=== PATIENT | male | born 1940 | race Caucasian/White ===

== ENCOUNTER 2025-06-25 13:01 | Inpatient (IN) | payer MEDICARE, MEDICAID, SELFPAY ==
--- NOTE | 2025-06-25 13:02 | ED_ITS ---
HPI - Syncope 2 General: Chief Complaint: Syncope Stated Complaint: SYNCOPE Time Seen by Provider: 06/25/25 13:02 History of Present Illness: 84-year-old man with a history of agus ia, BPH, constipation, hypertension, schizoaffective disorder, anemia, hypothyroidism, who presents to the emergency room by ambulance from skilled nursing after having had a couple of syncopal episodes today. He has fairly severe dementia and does not have any complaints but is prone to becoming emotional and crying quite frequently. Apparently this is his normal behavior at the skilled nursing. No focal motor deficits. He is afebrile with fairly normal vitals on presentation. Related Data Home Medications ?Medication ?Instructions ?Recorded ?Confirmed acetaminophen 325 mg tablet 650 mg PO QID PRN mild 10/1506/25/25 pain/fever>100 cetirizine 10 mg tablet (Zyrtec) 10 mg PO DAILY 06/25/25 cyanocobalamin (vitamin B-12) 1,000 mcg IM .Q28D 06/2506/25/25 1,000 mcg/mL injection solution docusate sodium 100 mg capsule 100 mg PO BID 06/25/25 06/25/25 (Colace) guaifenesin 100 mg/5 mL oral 200 mg PO Q6H PRN cough/c ongestion 06/25/25 06/25/25 liquid (Magali-Tussin) levothyroxine 50 mcg tablet 50 mcg PO QAM 06/25/2510/15 memantine 10 mg tablet 10 mg PO BID 06/25/25 naloxone 1 mg/mL injection syringe 1 mg IM Q2M PRN Opi oid Overdose 06/25/25 06/25/25 oxcarbazepine 300 mg tablet 300 mg PO BID 06/25/2510/15 phenol 1.4 % mucosal aerosol spray 2 spray mucous memb lorenzo Q4H PRN 06/25/25 06/25/25 Sore Throat Review of Systems 2 General: Reports: ROS unobtainable due to medical condition Physical Exam 2 Narrative: EXAM NARRATIVE: General: Alert, no acute distress. Skin: Warm, dry. Head: Normocephalic, atraumatic. Neck: Supple, trachea midline. Eye: Extraocular movements are intact. Ears, nose, mouth and throat: Dry oral mucosa Cardiovascular: Regular, Normal peripheral perfusion. Respiratory: Lungs are clear to auscultation, respirations are non-labored, breath sounds are equal, Symmetrical chest wall expansion. Gastrointestinal: Soft, Nontender, Non distended Musculoskeletal: Normal ROM, no deformity. Neurological: Alert and oriented, No focal neurological deficit observed. Psychiatric: Cooperative, appropriate mood & affect. Course 2 Vital Signs: Vital signs: Vital Signs Temperature 98.1 F 06/25/25 13:03 Pulse Rate 60 06/25/25 13:17 Respiratory Rate 62 H 06/25/25 13:55 Blood Pressure 123/72 06/25/25 13:55 Pulse Oximetry 100 06/25/25 13:17 Oxygen Delivery Me thod Room Air 06/25/25 13:17 MDM - Syncope Medical Decision Making Medical decision making Patient's reason for coming to the emergency room: Syncopal episode Social determinants: Advanced dementia, skilled nursing patient I reviewed the patient's medical record. Patient has no previous visits here but I did review his record from the skilled nursing. 84-year-old man with a history of dementia, BPH, constipation, hypertension, schizoaffective disorder, anemia, hypothyroidism I reviewed the patient's current home meds Medications include Trileptal, memantine, docusate, cetirizine, Tylenol, levothyroxine, and he also has a history of a pacemaker. No listed anticoagulation Alternate historians: None Differential diagnosis: including but not limited to and based on the above HPI, review of systems and physical exam: Orders placed to evaluate differential diagnosis based on the above differential, HPI and physical exam EKG: Time 1340. Rate 60. Normal sinus rhythm, No ST-T changes, no ectopy, paced rhythm, this was reviewed and interpreted by myself the emergency room physician at 1345 Chest x-ray: No acute process. No infiltrate. No pneumothorax. This was reviewed and interpreted by myself the emergency room physician. I also reviewed the radiology report. Lab Review: Laboratory results were reviewed and interpreted by myself the emergency room physician. No leukocytosis. Mild anemia. He has anemia listed in his skilled nursing record so I imagine this is not much off his baseline. BUN and creatinine are 22 and 1.3. Chronic kidney disease is not listed with a sodium of 123 and with his exam I think he is hyponatremic secondary to dehydration. I do not see any diuretics or anything else that would cause this in his medications. Assessment of risk: Level of risk: High risk patient. Multiple comorbidities. Very elderly. Dementia. Hospitalization considerations: Patient is being admitted Reexamination: Patient remained stable. No increased work of breathing. No altered mental status. No focal motor deficits. Consultation: I spoke with Dr. Brian who is on-call for the hospital service who agrees to admission Assessment and plan: Syncope Dehydration Hyponatremia ?Normal saline bolus in the emergency room -I discussed the patient with the hospitalist on-call who is admitting the patient. - Discussed findings and plan with patient. Answered any questions. - All laboratory values were reviewed and interpreted personally by myself, the ER physician - All imaging was reviewed and interpreted personally by myself, the ER physician. - Evaluation and treatment of this problem were appropriate in the emergency setting Lab Data 06/25/25 13:06 06/25/25 13:06 Radiology Impressions Chest X-Ray 06/25/25 13:05 IMPRESSION: No acute cardiopulmonary findings. Laboratory Results WBC 3.95 10^3/uL (3.29-11.43) 06/25/25 13:06 RBC 2.92 10^6/uL (3.85-5.65) L 06/25/25 13:06 Hgb 9.90 g/dL (11.27-16.99) L 06/25/25 13:06 Hct 27.3 % (37-53) L 06/25/25 13:06 MCV 93.5 fl (82-101) 06/25/25 13:06 MCH 33.9 pg (27-33) H 06/25/25 13:06 MCHC 36.3 g/dL (30-55) 06/25/25 13:06 RDW 14.7 % (12.1-15.1) 06/25/25 13:06 Plt Count 171 10^3/cmm (157-399) 06/25/25 13:06 MPV 9.7 fL (7.4-10.4) 06/25/25 13:06 Neut % (Auto) 40.2 % 06/25/25 13:06 Lymph % (Auto) 41.3 % 06/25/25 13:06 [place] % (Auto) 8.6 % 06/25/25 13:06 Eos % (Auto) 8.4 % 06/25/25 13:06 Baso % (Auto) 1.0 % 06/25/25 13:06 Neut # (Auto) 1.59 10^3/uL (1.8-7.7) L 06/25/25 13:06 Lymph # (Auto) 1.6 10^3/uL (0.8-4.8) 06/25/25 13:06 [place] # (Auto) 0.3 10^3/uL (0.2-0.9) 06/25/25 13:06 Eos # (Auto) 0.3 10^3/uL (0.0-0.8) 06/25/25 13:06 Baso # (Auto) 0.0 10^3/uL (0.0-0.1) 06/25/25 13:06 Nucleated RBC % (auto) 0 % 06/25/25 13:06 Nucleated RBCs # 0.0 /100WBC 06/25/25 13:06 Sodium 123 mmol/L (136-145) L 06/25/25 13:06 Potassium 4.5 mmol/L (3.5-5.1) 06/25/25 13:06 Chloride 90 mmol/L (98-107) L 06/25/25 13:06 Carbon Dioxide 21 mmol/L (22-29) L 06/25/25 13:06 Anion Gap 16.5 (5-19) 06/25/25 13:06 BUN 22 mg/dL (8-23) 06/25/25 13:06 Creatinine 1.3 mg/dL (0.7-1.2) H 06/25/25 13:06 GFR Calculation Not Reportable 06/25/25 13:06 Glucose 109 mg/dL (65-115) 06/25/25 13:06 Calculated Osmolality 260 mOsm/kg (285-295) L 06/25/25 13:06 Lactic Acid 1.6 mmol/L (0.5-2.2) 06/25/25 13:15 Calcium 9.0 mg/dL (8.5-10.5) 06/25/25 13:06 Total Bilirubin 0.3 mg/dL (0.15-1.2) 06/25/25 13:06 AST 17 U/L (0-40) 06/25/25 13:06 ALT 10 U/L (0-41) 06/25/25 13:06 Alkaline Phosphatase 101 U/L (40-130) 06/25/25 13:06 Troponin T Baseline 15 ng/L (0-15) 06/25/25 13:06 Troponin T 120 Minute 13.32 ng/L (0-15) 06/25/25 14:50 Delta Troponin T -1.68 ABS# (0-10) L 06/25/25 14:50 Total Protein 6.8 g/dL (6.6-8.7) 06/25/25 13:06 Albumin 4.2 g/dL (3.5-5.2) 06/25/25 13:06 Globulin 2.6 g/dL (1.3-4.6) 06/25/25 13:06 Urine Color Yellow (Yellow) 06/25/25 13:35 Urine Appearance Clear (CLEAR) 06/25/25 13:35 Urine pH 5.5 (5-7) 06/25/25 13:35 Ur Specific [place] 1.019 (1.005-1.030) 06/25/25 13:35 Urine Protein Trace (Negative) A 06/25/25 13:35 Urine Glucose (UA) Negative (Normal) 06/25/25 13:35 Urine Ketones Negative (Negative) 06/25/25 13:35 Urine Blood Negative (Negative) 06/25/25 13:35 Urine Nitrate Negative (Negative) 06/25/25 13:35 Urine Bilirubin Negative (Negative) 06/25/25 13:35 Urine Urobilinogen 0.2 mg/dL (Negative) 06/25/25 13:35 Ur Leukocyte Esterase Negative (Negative) 06/25/25 13:35 Urine RBC 0-2 /hpf (0-2) 06/25/25 13:35 Urine WBC 0-5 /hpf (0-5) 06/25/25 13:35 Ur Squamous Epith Cells 0-5 /hpf (0-5) 06/25/25 13:35 Amorphous Sediment Not Reportable 06/25/25 13:35 Urine Bacteria None seen /hpf (NONE) 06/25/25 13:35 Hyaline Casts 2.46 /lpf 06/25/25 13:35 All radiology interpretation(s) finalized by discharge Discharge Plan Discharge Patient Disposition: Admitted As Inpatient Clinical Impression: Acute hyponatremia, Dehydration, Syncope Condition: Stable Coding Level of Care Code ED Computer Forensics Analyst for Cynthia Montes
[2025-06-25 13:03] VITALS: BP 114/84; PULSE 60; RESP 16; TEMP 36.7; O2SAT 99; BMI 23.6
--- NOTE | 2025-06-25 13:05 | XRR_ITS ---
PROCEDURE INFORMATION: Exam: XR Chest Exam date and time: 06/25/2025 1:23 PM Age: 84 years old Clinical indication: Other: Weakness TECHNIQUE: Imaging protocol: Radiologic exam of the chest. Views: 1 view. COMPARISON: No relevant prior studies available. FINDINGS: Tubes, catheters and devices: Left subclavian pacer with right atrial appendage and right ventricular leads. Lungs: Low lung volumes. No focal consolidation. Pleural spaces: Unremarkable. No pleural effusion. No pneumothorax. Heart/Mediastinum: Unremarkable. No cardiomegaly. Vasculature: Atherosclerotic aortic calcifications. Bones/joints: Unremarkable. XR/XR chest 1V portable [id number] IMPRESSION: No acute cardiopulmonary findings.
--- NOTE | 2025-06-25 13:05 | ECG_ITS ---
[facility]: 2025-[facility]25 Pat Name: Jaciel Thrasher Department: Room: Gender: Male Phone Specialist: : 1940 Requested By: Reshma Borges Order Number: [id number] Guillaume MD: Ghada Craaballo M.D. Measurements Intervals [place] Rate: 60 P: -64 W[place]: 215 QRS: -77 QRSD: 158 T: 86 QT: 483 QTc: 485 Interpretive Statements ELECTRONIC ATRIAL PACEMAKER ELECTRONIC VENTRICULAR PACEMAKER ABNORMAL RHYTHM ECG No previous ECG available for comparison Electronically Signed On 06-25-2025 23:39:01 READING TEACHER by Ghada Caraballo M.D. [email or web address] [id number]
[2025-06-25 13:14] LABS: Hematocrit 27.3 % (37-53); Hemoglobin 9.90 g/dL (11.27-16.99); Mean Corpuscular HGB Conc 36.3 g/dL (30-55); Mean Corpuscular Hemoglobin 33.9 pg (27-33); Mean Corpuscular Volume 93.5 fl (82-101); Nucleated Red Blood Cells % 0 %; Platelet Count 171 10^3/cmm (157-399); Red Blood Count 2.92 10^6/uL (3.85-5.65); White Blood Count 3.95 10^3/uL (3.29-11.43)
[2025-06-25 13:17] VITALS: BP 114/84; PULSE 60; O2SAT 100
[2025-06-25 13:32] LABS: Troponin(5th) Baseline 15 ng/L (0-15)
[2025-06-25 13:34] LABS: Alanine Aminotransferase 10 U/L (0-41); Albumin Level 4.2 g/dL (3.5-5.2); Alkaline Phosphatase 101 U/L (40-130); Anion Gap 16.5 (5-19); Aspartate Amino Transferase 17 U/L (0-40); Blood Urea Nitrogen 22 mg/dL (8-23); Calcium 9.0 mg/dL (8.5-10.5); Carbon Dioxide 21 mmol/L (22-29); Chloride 90 mmol/L (98-107); Globulin 2.6 g/dL (1.3-4.6); Glucose 109 mg/dL (65-115); Osmolality Calculated 260 mOsm/kg (285-295); Potassium 4.5 mmol/L (3.5-5.1); Sodium 123 mmol/L (136-145); Total Protein 6.8 g/dL (6.6-8.7)
--- OUTSIDE RECORDS SUMMARY | 2025-06-25 13:35 | XMS_ITS | Clinical Summary ---
Author Organization [facility] un[facility] Address [address] [place] [address] Phone Care Team Providers Care Record Maker Name Role Phone Unavailable Primary Care Provider Unavailabl e Allergies Active Allergy Reactions Criticality Noted Date Comments Tamsulosin Unknown 05/22/2024 Medications acetaminophen (TYLENOL) 325 mg tablet Take 325 mg by mouth every 4 hours as needed for Pain. Active docusate sodium (COLACE) 100 mg capsule Take 100 mg by mouth 2 times daily. Active levothyroxine 50 mcg tablet Take 50 mcg by mouth daily in the morning. Active OXcarbazepine (TRILEPTAL) 300 mg tablet Take 300 mg by mouth 2 times daily. Active memantine (NAMENDA) 10 mg Tablet Take 10 mg by mouth 2 times daily. 05/13/2024 Active HYDROcodone-swapnil taminophen (NORCO) 5-325 mg tabletIndicatio ns:Phimosis of penis Take 1 Tablet by mouth every 8 hours as needed for Pain or Other (See Comment) (circumcisio n). Max Daily Amount: 3 Tablets 12 Tablet 06/04/2024 Active Active Problems Problem Noted Date Diagnosed Date Phimosis of penis 05/22/2024 Encounters Date Type Department Care Team Description 06/17/2025 External Device Data [facility] ABSTRACTION Provider, Abstract 06/17/2025 External Device Data [facility] ABSTRACTION Provider, Abstract 06/17/2025 External Device Data [facility] ABSTRACTION Provider, Abstract 04/29/2025 External Device Data [facility] ABSTRACTION Provider, Abstract 04/29/2025 External Device Data [facility] ABSTRACTION Provider, Abstract from Last 3 Months Immunizations Immunization Administration Dates Next Due (Moderna Bivalent)(6 Mos Up) COVID-19 Vaccine - Emergency Use Authorization, MRNA(Pf) 50 Mcg/0.5 Ml Im Susp 03/02/2023,07/22/2022 (PREVNAR 13)(6 WKS UP) PNEUM OCOCCAL CONJUGATE (PCV13) 0.5 ML, IM 03/22/2017 (PREVNAR 20)(6 WKS UP) PNEUM OCOCCAL CONJUGATE VACCINE 20-VALENT (PCV20), POLYSACCHARIDE [id number] CONJUGATE, ADJUVANT 0.5 ML (PF) IM 04/14/2023 (SPIKEVAX) (12 YRS UP PRIMAR Y SERIES) COVID-19 VACCINE - MRNA-1273(PF) 100 MCG/0.5 ML IM SUSP 03/16/2022,06/23/2021,09/03/2020,08/06 (SPIKEVAX)(12YR UP) COVID-19 VACCINE, MRNA (PF)50 MCG/0.5 ML, IM SYRINGE 08/18/2023 INFLUENZA VACCINE HIGH DOSE QUADRIVALENT 65 YR UP PF IM 06/12/2023,05/16/2022,01/21/2016 Social History Tobacco Use Types Packs/Day Years Used Date Smoking Tobacco: Never Smokeless Tobacco: Never Tobacco Cessation:Counseling Given: No Alcohol Use Standard Drinks/Week Comments Never 0 (1 standard drink = 0.6 oz pur e alcohol) Feeling Safe Answer Date Recorded Are you in a relationship wi th someone who hurts you emotionally and/or physically? 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 Gender Identity Not on file Sexual Orientation Not on file Last Filed Vital Signs Vital Sign Reading Time Taken Comments Blood Pressure 115/64 06/26/2024 9:30 AM RUBBER STAMP DIE INSPECTOR Pulse 76 06/26/2024 10:30 AM RUBBER STAMP DIE INSPECTOR Temperature 36.5 C (97.7 F) 06/26/2024 9:23 AM RUBBER STAMP DIE INSPECTOR Respiratory Rate 17 06/26/2024 10:30 AM RUBBER STAMP DIE INSPECTOR Oxygen Saturation 98% 06/26/2024 10:30 AM RUBBER STAMP DIE INSPECTOR Inhaled Oxygen Concentration - - Weight 62.3 kg (137 lb 6.4 oz) 06/26/2024 9:23 A M RUBBER STAMP DIE INSPECTOR Height 172.7 cm (5' 8 ) 06/26/2024 9:23 AM RUBBER STAMP DIE INSPECTOR Body Mass Index 20.89 06/26/2024 9:23 AM RUBBER STAMP DIE INSPECTOR Plan of Treatment Health Maintenance Due Date Last Done Comments DTAP/TDAP/TD VACCINES (1 - Tdap) 1959 ZOSTER VACCINE (1 of 2) 1990 RSV VACCINE (60+ or ) (1 - 1-dose 75+ series) 2015 INFLUENZA VACCINE (#1) 2025 , 05/16/2022, 01/21/2016 COVID-19 Vaccine (2024-2 6 season) 2025 08/18/2023, 03/02/2023, 07/22/2022, Additional history exists PNEUMOCOCCAL VACCINE 50+ YEARS Completed 04/14/2023 , 03/22/2017 Insurance MEDICARE PART A [place] B [id number]
--- OUTSIDE RECORDS SUMMARY | 2025-06-25 13:35 | XMS_ITS | Encounter Summary ---
Author Organization [facility] Address 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
--- OUTSIDE RECORDS SUMMARY | 2025-06-25 13:35 | XMS_ITS | Encounter Summary ---
Author Organization [facility] Address 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
--- OUTSIDE RECORDS SUMMARY | 2025-06-25 13:35 | XMS_ITS | Encounter Summary ---
Author Organization [facility] Address [address] [place] [address] Care Team Providers Care It Programmer Analyst Name Role Phone Unavailable Primary Care Provider [...] on file Legal Sex Male 1:29 PM SHANK CUTTER Gender Identity Not on file Sexual Orientation Not on file documented as of this encounter Plan of Treatment Not on file documented as of this encounter Visit Diagnoses Not on filedocumented in this encounter
--- NOTE | 2025-06-25 13:49 | PC.PHAR ---
Pt is from [facility]
[2025-06-25 13:55] VITALS: BP 123/72; RESP 62
[2025-06-25 13:59] LABS: Glucose Urine UA Negative (Normal); Nitrate Urine Negative (Negative); Specific Gravity, Urine 1.019 (1.005-1.030)
[2025-06-25 14:04] LABS: Universal Test for UA Present (0)
[2025-06-25 14:11] LABS: Lactic Sepsis W/Reflex 1.6 mmol/L (0.5-2.2)
[2025-06-25 14:33] LABS: UA Slide Review UA Slide Review Perf
--- NOTE | 2025-06-25 15:14 | ECG_ITS ---
[facility] Test Date: 2025-06-25 Pat Name: Jaciel Thrasher Department: Room: Gender: Male Thimble Press Operator: : 1940 Requested By: Reshma Borges Order Number: [id number] Guillaume MD: Ghada Caraballo M.D. Measurements Intervals [place] Rate: 60 P: -85 NC: 221 QRS: -75 QRSD: 158 T: 84 QT: 481 QTc: 484 Interpretive Statements ELECTRONIC ATRIAL PACEMAKER ELECTRONIC VENTRICULAR PACEMAKER ABNORMAL RHYTHM ECG Compared to ECG 06/25/2025 13:40:59 No significant changes Electronically Signed On 06-25-2025 23:42:22 INDOOR LANDSCAPE ARCHITECT by Ghada Caraballo M.D. [email or web address] [id number]
--- NOTE | 2025-06-25 16:26 | P.HP_ITS ---
Providers/Chief Complaint 2 Admitting Physician: Shaun Brian MD Primary Care Provider: Tyrone Morocho MD Chief Complaint: SYNCOPE History of Present Illness Jaciel Thrasher is a 84 year old male with PMH of HTN, gout, BPH, hypothyroidism, advanced dementia and schizoaffective disorder. He was temporarily penitentiary. Patient presented to the ED on 06/25/25 with concern for syncope. Records on disposition are very limited. Patient additionally has had 2 syncopal events. It is unclear if he had loss of consciousness. Patient is not on any antithrombotic or anticoagulation agents. He does not recall injury to the head. Denies head and neck pain. Denies chest pain, shortness of breath, dizziness and abdominal pain. Patient himself does not have any specific complaints with exception of dysuria. ED course & work-up reviewed Labs 06/25/25 1306 Infection/Inflammatin LA 1.6 Hemogram WBC 3.95 RBC 2.92 PLT 171 HGB 9.9 Chemistry Na 123 K 4.5 Cl 90 Ca 9.0 Glu 109 CO2 21 AG 16.5 BUN 22 Cr 1.3 AST 17 ALT 10 ALP 101 T.Bili 0.3 Alb 4.2 T.Protein 6.8 Cardiac Trop 15 -> 13.32 Urinalysis SG 1.019, protein (trace) EKG #1 06/25/25 1340: Atrial paced EKG #2 06/25/25 1406: Atrial paced CXR 06/25/25 No acute cardiopulmonary findings In ED received 1L NS IVF bolus Medications/Allergies Home Medications ?Medication ?Instructions ?Recorded ?Confirmed ?Last Taken ?Type acetaminophen 325 mg tablet 650 mg PO QID PRN mild 10/1506/25/25 06/25/25 History pain/fever>100 cetirizine 10 mg tablet (Zyrtec) 10 mg PO DAILY 06/25/25 06/25/25 History cyanocobalamin (vitamin B-12) 1,000 mcg IM .Q28D 06/2506/25/25 06/24/25 History 1,000 mcg/mL injection solution docusate sodium 100 mg capsule 100 mg PO BID 06/25/25 06/25/25 06/25/25 History (Colace) guaifenesin 100 mg/5 mL oral 200 mg PO Q6H PRN cough/c ongestion 06/25/25 06/25/25 06/14/25 History liquid (Magali-Tussin) levothyroxine 50 mcg tablet 50 mcg PO QAM 06/25/2510/1506/25/25 History memantine 10 mg tablet 10 mg PO BID 06/25/2506/25/25 History naloxone 1 mg/mL injection syringe 1 mg IM Q2M PRN Opi oid Overdose 06/25/25 06/25/25 Unknown History oxcarbazepine 300 mg tablet 300 mg PO BID 06/25/2510/1506/25/25 History phenol 1.4 % mucosal aerosol spray 2 spray mucous memb lorenzo Q4H PRN 06/25/25 06/25/25 06/13/25 History Sore Throat Vitals/I&O/Wt Last Vital Signs Temp 98.1 F 06/25/25 13:03 Pulse 60 06/25/25 13:17 Resp 62 H 06/25/25 13:55 BP 123/72 06/25/25 13:55 Pulse Ox 100 06/25/25 13:17 O2 Del Method Room Air 06/25/25 13:17 Weight last 48 hrs Weight 72.575 kg Physical Exam 2 Narrative: Constitutional: NAD Head: NC/AT Eyes: PERRLA, EOMI Ears: Normal external ears. Hearing intact to normal voice. Nose: Normal external nose. No epistaxis. Throat: Dry MM Respiratory: CTAB. No accessory muscle use. On room air. Cardiovascular: Regular. No murmur. Extremities: No edema bilaterally Gastrointestinal: Soft. NT. ND. +BS Genitourinary: No velazquez catheter Musculoskeletal: Skin: Data 06/25/25 13:06 06/25/25 18:20 Other Labs: I have personally reviewed below listed labs that were done in ED on presentation. Labs 06/25/25 1306 Infection/Inflammatin LA 1.6 Hemogram WBC 3.95 RBC 2.92 PLT 171 HGB 9.9 Chemistry Na 123 K 4.5 Cl 90 Ca 9.0 Glu 109 CO2 21 AG 16.5 BUN 22 Cr 1.3 AST 17 ALT 10 ALP 101 T.Bili 0.3 Alb 4.2 T.Protein 6.8 Cardiac Trop 15 -> 13.32 Urinalysis SG 1.019, protein (trace) Micro: Microbiology 06/25/25 13:15 Blood Culture - Preliminary Blood SPECIMEN COLLECTED 06/25/25 13:25 Blood Culture - Preliminary Blood SPECIMEN COLLECTED CXR: Radiologist's impression: Exam: XR Chest (1 view) Exam date and time: 06/25/2025 1:23 PM Age: 84 years old Clinical indication: Other: Weakness COMPARISON: No relevant prior studies available. FINDINGS: Tubes, catheters and devices: Left subclavian pacer with right atrial appendage and right ventricular leads. Lungs: Low lung volumes. No focal consolidation. Pleural spaces: Unremarkable. No pleural effusion. No pneumothorax. Heart/Mediastinum: Unremarkable. No cardiomegaly. Vasculature: Atherosclerotic aortic calcifications. Bones/joints: Unremarkable. IMPRESSION: No acute cardiopulmonary findings. EKG reviewed: My Interpretation: EKG #1 06/25/25 1340: Atrial paced EKG #2 06/25/25 1406: Atrial paced A&P Assessment and plan 1. Acute hyponatremia: 2. Metabolic acidosis, normal anion gap (NAG): 3. Normocytic anemia: 4. Acquired hypothyroidism: Plan: # Syncope Unknown if there was loss of consciousness CT head was not done in ED. Currently he does not have any focal neurological symptoms pacemaker in situ - orthostatic BPs QShift x4 - tele monitoring - interrogate pacemaker - will defer head CT for now, in the absence of focal symptoms - blood cx collected in ED, pending, will need follow-up # Acute hyponatremia Not on diuretic. On psychotropic meds, oxcarbazepine Calculated Osm 255 (low) Received 1L IVF bolus in ED - check sOSM, uOSM, urine Na, TSH and cortisol - serial BMP's Q4H - avoid sodium overcorrection, do not exceed 6 mEq/L rise in 24 hours - neuro checks Q4H, until hyponatremia improved - seizure precautions 06/25 2000 follow-up on lab Na 121 K 4.3 Cl 92 CO2 17 Cr 1.0 Hyponatremia work-up labs still pending - sOsm, uOsm and urine sodium worsening hyponatremia, however improved metabolic acidosis and renal function suspect hypovolemic hyponatremia, will start her on NS at 75 ml/hr at this time. suspect drop in sodium due to isolated NS bolus in the setting of severe sodium deficit. # Metabolic acidosis w/ normal AG # Normocytic anemia Baseline HGB unknown. Presenting HGB 9.9 g/dL. - Trend Hgb - No active signs of bleeding at this time, continue to monitor closely. # Renal insufficiency bCr unknown. Presenting Cr 1.3. 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 memantine 10 mg BID, HOLD, re: NF med for hospital oxcarbazepine 300 mg BID, HOLD, re: hyponatremia # Dysuria # Hx of urinary retention Per his record, possibly chronic UA negative for UTI Bladder scan VTE PPx: SCDs. Lovenox. PDMP PDMP Reviewed: Not Reviewed Attestations 2 Medical Necessity Statement*: Patient admitted under observation status. Patient presents with syncope in the setting of moderate hyponatremia and requires careful IV fluid administration to be sure safe sodium correction. He also require serial electrolyte monitoring, ongoing neurological assessment and telemetry monitoring due to risk of recurrent syncope and complications of hyponatremia. Clinical needs are appropriate for observation status (<2 midnights) at this time. Coding Level of Care Code 04553 Diagnoses Acute hyponatremia E87.1 Metabolic acidosis, normal anion gap (NAG) E87.20 Normocytic anemia D64.9 Acquired hypothyroidism E03.9 Hypothyroidism type: acquired
[2025-06-25 16:35] VITALS: BP 142/65; PULSE 66; O2SAT 98
[2025-06-25 19:01] LABS: Troponin 5 6HR 13.21 ng/L (0-15)
[2025-06-25 19:02] LABS: Anion Gap 16.3 (5-19); Blood Urea Nitrogen 21 mg/dL (8-23); Calcium 8.2 mg/dL (8.5-10.5); Carbon Dioxide 17 mmol/L (22-29); Chloride 92 mmol/L (98-107); Glucose 99 mg/dL (65-115); Osmolality Calculated 255 mOsm/kg (285-295); Potassium 4.3 mmol/L (3.5-5.1); Sodium 121 mmol/L (136-145)
[2025-06-25 19:03] LABS: Troponin 5 6HR Delta -1.79 ng/L (0-12)
--- NOTE | 2025-06-25 19:05 | ECG_ITS ---
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 Measurements Intervals [place] Rate: 60 P: 256 SD: 230 QRS: -78 QRSD: 158 T: 84 QT: 466 QTc: 466 Interpretive Statements ELECTRONIC ATRIAL PACEMAKER ELECTRONIC VENTRICULAR PACEMAKER ABNORMAL RHYTHM ECG Compared to ECG 06/25/2025 15:14:06 No significant changes Electronically Signed On 06-25-2025 23:41:46 ORE ROASTER by Ghada Caraballo M.D. [email or web address]
[2025-06-25 20:39] VITALS: BP 155/74; PULSE 64; RESP 18; TEMP 37; O2SAT 97
--- NOTE | 2025-06-25 23:02 | PC.NURSE ---
Bladder scan performed showing 298 mL urinary retention. Per orders, straight cath completed using sterile technique. Pt tolerated procedure well with no complications. 325 mL clear/yellow urine returned. Pt educated on urinary retention and the reason for straight cathing. Pt resting comfortably in bed. Bed locked lowest position, SR up x2. Call light, belongings in reach.
[2025-06-26] VITALS (10 sets, daily range): BP systolic 94–152; BP diastolic 55–78; PULSE 60–102; RESP 16–18; TEMP 36.4–37.1; O2SAT 94–99
--- NOTE | 2025-06-26 05:05 | PC.NURSE ---
Bladder scanned pt due to no void since straight cath. 284 mL retained. Per orders, will continue to monitor for urinary retention, if >300 in the bladder and he had symptoms or 500ml without symptoms and will let know.
[2025-06-26 05:58] LABS: Hematocrit 24.8 % (37-53); Hemoglobin 8.60 g/dL (11.27-16.99); Mean Corpuscular HGB Conc 34.7 g/dL (30-55); Mean Corpuscular Hemoglobin 32.5 pg (27-33); Mean Corpuscular Volume 93.6 fl (82-101); Nucleated Red Blood Cells % 0 %; Platelet Count 174 10^3/cmm (157-399); Red Blood Count 2.65 10^6/uL (3.85-5.65); White Blood Count 2.95 10^3/uL (3.29-11.43)
[2025-06-26 06:12] LABS: Anion Gap 15.4 (5-19); Blood Urea Nitrogen 17 mg/dL (8-23); Calcium 7.9 mg/dL (8.5-10.5); Carbon Dioxide 18 mmol/L (22-29); Chloride 97 mmol/L (98-107); Glucose 88 mg/dL (65-115); Osmolality Calculated 263 mOsm/kg (285-295); Potassium 4.4 mmol/L (3.5-5.1); Sodium 126 mmol/L (136-145)
[2025-06-26 06:24] LABS: Thyroid Stimulating Hormone 4.54 uIU/mL (0.27-4.20)
[2025-06-26 08:36] LABS: Anion Gap 15.3 (5-19); Blood Urea Nitrogen 16 mg/dL (8-23); Calcium 8.1 mg/dL (8.5-10.5); Carbon Dioxide 17 mmol/L (22-29); Chloride 98 mmol/L (98-107); Glucose 93 mg/dL (65-115); Osmolality Calculated 263 mOsm/kg (285-295); Potassium 4.3 mmol/L (3.5-5.1); Sodium 126 mmol/L (136-145)
--- NOTE | 2025-06-26 09:19 | P.PN_ITS ---
Subjective 2 Subjective: Hospital day 1. Patient being seen in follow-up for hyponatremia and syncope. Patient himself does not have any specific records. Vitals/I&O/Wt Last Vital Signs Temp 97.7 F 06/26/25 07:32 Pulse 66 06/26/25 07:32 Resp 18 06/26/25 07:32 BP 113/67 06/26/25 07:32 Pulse Ox 96 06/26/25 07:32 O2 Del Method Room Air 06/26/25 07:32 06/25/25 06/26/25 06/26/25 22:59 06:59 14:59 Intake Total 1100 / 1100 120 / 120 Output Total 100 / 100 525 / 625 100 / 100 Balance 1000 / 1000 -525 / 475 20 / 20 Weight last 48 hrs Weight 65.799 kg Weight 72.575 kg Physical Exam 2 Narrative: Constitutional: NAD Head: NC/AT Eyes: PERRLA, EOMI Ears: Normal external ears. Hearing intact to normal voice. Nose: Normal external nose. No epistaxis. Throat: MMM Respiratory: CTAB. No accessory muscle use. On room air. Cardiovascular: Regular. No murmur. Extremities: No edema bilaterally Gastrointestinal: Soft. NT. ND. +BS Genitourinary: No velazquez catheter Data 06/26/25 19:38 06/26/25 19:38 Other Labs: I have personally reviewed below listed labs that were done in ED on presentation. Labs 06/26/25 Hemogram WBC 2.95 RBC 2.65 PLT 174 HGB 8.6 HCT 24.8 Chemistry Na 126 K 4.3 Cl 98 Ca 8.1 Glu 93 CO2 17 AG 15.3 Renal BUN 16 Cr 0.9 eGFR Liver AST 17 ALT 10 ALP 101 T.Bili 0.3 Other TSH 4.54 AM cortisol 10.08 Micro: Microbiology 06/25/25 13:15 Blood Culture - Preliminary Blood SPECIMEN COLLECTED 06/25/25 13:25 Blood Culture - Preliminary Blood SPECIMEN COLLECTED A&P Assessment and plan 1. Acute hyponatremia: 2. Metabolic acidosis, normal anion gap (NAG): 3. Normocytic anemia: 4. Acquired hypothyroidism: Plan: # Syncope Unknown if there was loss of consciousness CT head was not done in ED. Currently he does not have any focal neurological symptoms pacemaker in situ - orthostatic BPs QShift x4 orthostatic VS this am + for orthostatis he has not been completely volume repleted at this time - tele monitoring - interrogate pacemaker - will defer head CT for now, in the absence of focal symptoms - blood cx collected in ED, results pending # Acute hyponatremia Not on diuretic. On psychotropic meds, oxcarbazepine Calculated Osm 255 (low) Received 1L IVF bolus in ED - check sOSM, uOSM, urine Na - TSH 4.54 and cortisol 10.08 - serial BMP's Q4H Na level improving slowly - avoid sodium overcorrection, do not exceed 6 mEq/L rise in 24 hours - neuro checks Q4H, until hyponatremia improved - seizure precautions # Metabolic acidosis w/ normal AG # Normocytic anemia Baseline HGB unknown. Presenting HGB 9.9 g/dL. - Hgb down trending 9.9 -> 8.2 - No active signs of bleeding at this time, continue to monitor closely. # Renal insufficiency bCr unknown. Presenting Cr 1.3. 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 memantine 10 mg BID, HOLD, re: NF med for hospital oxcarbazepine 300 mg BID, HOLD, re: hyponatremia # Dysuria # Hx of urinary retention Per his record, possibly chronic UA negative for UTI - will need to start him on tamsulosin, once volume repleted and no longer orthostatic VTE PPx: SCDs. Lovenox. PDMP PDMP Reviewed: Not Reviewed Attestations 2 Medical Necessity Statement*: Patient admitted under observation status. Patient presents with syncope in the setting of moderate hyponatremia and requires careful IV fluid administration to be sure safe sodium correction. He also require serial electrolyte monitoring, ongoing neurological assessment and telemetry monitoring due to risk of recurrent syncope and complications of hyponatremia. Clinical needs are appropriate for observation status (<2 midnights) at this time. Coding Level of Care Code 23393 Diagnoses Acute hyponatremia E87.1 Metabolic acidosis, normal anion gap (NAG) E87.20 Normocytic anemia D64.9 Acquired hypothyroidism E03.9 Hypothyroidism type: acquired
[2025-06-26 12:25] LABS: Anion Gap 13.3 (5-19); Blood Urea Nitrogen 16 mg/dL (8-23); Calcium 8.1 mg/dL (8.5-10.5); Carbon Dioxide 20 mmol/L (22-29); Chloride 98 mmol/L (98-107); Glucose 98 mg/dL (65-115); Osmolality Calculated 265 mOsm/kg (285-295); Potassium 4.3 mmol/L (3.5-5.1); Sodium 127 mmol/L (136-145)
[2025-06-26 16:27] LABS: Anion Gap 13.2 (5-19); Blood Urea Nitrogen 16 mg/dL (8-23); Calcium 7.9 mg/dL (8.5-10.5); Carbon Dioxide 20 mmol/L (22-29); Chloride 99 mmol/L (98-107); Glucose 103 mg/dL (65-115); Osmolality Calculated 267 mOsm/kg (285-295); Potassium 4.2 mmol/L (3.5-5.1); Sodium 128 mmol/L (136-145)
[2025-06-26 19:54] LABS: Hemoglobin 8.20 g/dL (11.27-16.99)
[2025-06-26 20:09] LABS: Anion Gap 15.9 (5-19); Blood Urea Nitrogen 17 mg/dL (8-23); Calcium 8.1 mg/dL (8.5-10.5); Carbon Dioxide 18 mmol/L (22-29); Chloride 99 mmol/L (98-107); Glucose 102 mg/dL (65-115); Osmolality Calculated 270 mOsm/kg (285-295); Potassium 3.9 mmol/L (3.5-5.1); Sodium 129 mmol/L (136-145)
[2025-06-27] VITALS (10 sets, daily range): BP systolic 101–137; BP diastolic 61–80; PULSE 64–89; RESP 16–17; TEMP 36.2–36.9; O2SAT 97–98
[2025-06-27 08:42] LABS: Hematocrit 25.6 % (37-53); Hemoglobin 8.60 g/dL (11.27-16.99); Mean Corpuscular HGB Conc 33.6 g/dL (30-55); Mean Corpuscular Hemoglobin 32.8 pg (27-33); Mean Corpuscular Volume 97.7 fl (82-101); Nucleated Red Blood Cells % 0 %; Platelet Count 172 10^3/cmm (157-399); Red Blood Count 2.62 10^6/uL (3.85-5.65); White Blood Count 3.46 10^3/uL (3.29-11.43)
--- NOTE | 2025-06-27 11:42 | PC.SOCIAL ---
IMM Updated Updated pt on IMM. No questions voiced. Provided pt a copy. Initialed, dated, & timed a copy & placed in chart.
--- NOTE | 2025-06-27 12:38 | P.PN_ITS ---
Subjective 2 Subjective: Hospital day 1. Patient being seen in follow-up for hyponatremia and syncope. Patient himself does not have any specific records. 06/27 patient seen and examined, denies a ny chest pain shortness of breath , orthostatics still positive Vitals/I&O/Wt Last Vital Signs Temp 97.1 F L 06/27/25 11:28 Pulse 73 06/27/25 11:28 Resp 17 06/27/25 11:28 BP 125/72 06/27/25 11:28 Pulse Ox 97 06/27/25 11:28 O2 Del Method Room Air 06/27/25 11:28 06/26/25 06/27/25 06/27/25 22:59 06:59 14:59 Intake Total 480 / 1677.5 1420 / 3097.5 240 / 240 Output Total 415 / 690 Balance 65 / 987.5 1420 / 2407.5 240 / 240 Weight last 48 hrs Weight 62.596 kg Weight 65.799 kg Weight 72.575 kg Physical Exam 2 Narrative: Constitutional: NAD Head: NC/AT Eyes: PERRLA, EOMI Ears: Normal external ears. Hearing intact to normal voice. Nose: Normal external nose. No epistaxis. Throat: MMM Respiratory: CTAB. No accessory muscle use. On room air. Cardiovascular: Regular. No murmur. Extremities: No edema bilaterally Gastrointestinal: Soft. NT. ND. +BS Genitourinary: No velazquez catheter Data 06/27/25 08:26 06/26/25 19:38 Micro: Microbiology 06/25/25 13:25 Blood Culture - Preliminary Blood NEGATIVE TO DATE 06/25/25 13:15 Blood Culture - Preliminary Blood NEGATIVE TO DATE A&P Assessment and plan 1. Acute hyponatremia: 2. Metabolic acidosis, normal anion gap (NAG): 3. Normocytic anemia: 4. Acquired hypothyroidism: Plan: # Syncope Unknown if there was loss of consciousness CT head was not done in ED. Currently he does not have any focal neurological symptoms pacemaker in situ -Orthostatics still positive. - Continue IV fluids and telemonitoring. - Check echocardiogram. Cardiology consulted. - Pacemaker may need to be interrogated. - will defer head CT for now, in the absence of focal symptoms - blood cx collected in ED, results pending # Acute hyponatremia Not on diuretic. On psychotropic meds, oxcarbazepine Calculated Osm 255 (low) Received 1L IVF bolus in ED -Sodium already improving however labs today pending. Sodium improved to 129 from 121 - TSH 4.54 and cortisol 10.08--check free T4 - serial BMP's Q4H Na level improving slowly - avoid sodium overcorrection, do not exceed 6 mEq/L rise in 24 hours - neuro checks Q4H, until hyponatremia improved - seizure precautions # Metabolic acidosis w/ normal AG # Normocytic anemia Baseline HGB unknown. Presenting HGB 9.9 g/dL. - Hgb down trending 9.9 -> 8.2 - No active signs of bleeding at this time, continue to monitor closely. # Renal insufficiency bCr unknown. Presenting Cr 1.3. 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 memantine 10 mg BID, HOLD, re: NF med for hospital oxcarbazepine 300 mg BID, HOLD, re: hyponatremia # Dysuria # Hx of urinary retention Per his record, possibly chronic UA negative for UTI - will need to start him on tamsulosin, once volume repleted and no longer orthostatic VTE PPx: SCDs. Lovenox. PDMP PDMP Reviewed: Not Reviewed Attestations 2 Medical Necessity Statement*: Echo pending. Cardiology consulted. Sodium gradually improving. Labs today pending. Coding Level of Care Code Acute Code for Chg Fwd Diagnoses Acute hyponatremia E87.1 Metabolic acidosis, normal anion gap (NAG) E87.20 Normocytic anemia D64.9 Acquired hypothyroidism E03.9 Hypothyroidism type: acquired
--- NOTE | 2025-06-27 12:46 | USCV_ITS ---
Jaciel Thrasher Age: 84 Gender: M : 1940 Exam Date: 06/27/2025 14:30 Ordering Phys: Anahi Villavicencio MD Technologist: Marquis Seo Exam Location: [facility] [place] Indication: syncope BP: 125 / 72 HR: 62 Rhythm: Sinus Technical Quality: Adequate MEASUREMENTS (Male / Female) Normal Values 2D ECHO LV Diastolic Diameter PLAX 3.9 cm 4.2 - 5.9 / 3.9 - 5.3 cm IVS Diastolic Thickness 0.8 cm 0.6 - 1.0 / 0.6 - 0.9 cm IVS Systolic Thickness 0.9 cm LVPW Diastolic Thickness 0.7 cm 0.6 - 1.0 / 0.6 - 0.9 cm LVPW Systolic Thickness 1.6 cm LV Ejection Fraction 2D Teich 62.8 % LV Ejection Fraction MOD 4C 63.8 % LV Ejection Fraction MOD 2C 72.3 % LV Ejection Fraction 2C AL 71.7 % M-MODE LA Ao Ratio MM 1.1 AV Cusp Separation MM 1.5 cm DOPPLER AV Peak Velocity 108.0 cm/s LVOT Peak Velocity 77.0 cm/s MV Peak Velocity 75.0 cm/s MV Area PHT 5.4 cm squared Mitral E to A Ratio 0.8 TV Peak Velocity 225.7 cm/s TR Peak Velocity 235.0 cm/s TR Peak Gradient 22.1 mmHg TR Mean Velocity 176.0 cm/s TR Mean Gradient 13.7 mmHg TR Velocity Time Integral 73.7 cm PV Peak Velocity 105.0 cm/s RV Ejection Time 0.3 s FINDINGS Left Ventricle Normal left ventricular size and systolic function, EF 63%. Mild hypokinesia of the basal inferior wall segment.mild left ventricular hypertrophy. Grade I/IV diastolic dysfunction (abnormal relaxation filling pattern), normal to mildly elevated filling pressures. Right Ventricle Normal right ventricular size and systolic function. Catheter/pacemaker wire in the right ventricular cavity. Right Atrium Normal right atrial size. Catheter/pacemaker wire in the right atrial cavity. Left Atrium Normal left atrial size. IA Septum Normal appearance of the interatrial septum. Mitral Valve Mild mitral annular calcification. Trace to mild mitral valve regurgitation. Aortic Valve Thickened aortic valve. Trace aortic valve regurgitation. Tricuspid Valve Mild tricuspid valve regurgitation. Estimated pulmonary artery peak systolic pressure within normal limits Pulmonic Valve Pulmonic valve not well visualized. Pericardium No pericardial effusion. Aorta Normal aortic annulus size. IVC Inferior vena cava not visualized. CONCLUSIONS Normal left ventricular size and systolic function, EF 63%. Mild hypokinesia of the basal inferior wall segment.mild left ventricular hypertrophy. Grade I/IV diastolic dysfunction (abnormal relaxation filling pattern), normal to mildly elevated filling pressures. Mild mitral annular calcification. Trace to mild mitral valve regurgitation. Thickened aortic valve. Trace aortic valve regurgitation. Mild tricuspid valve regurgitation. Estimated pulmonary artery peak systolic pressure within normal limits. Possible pacemaker wire in the right atrium and right ventricle There is no pericardial effusion. No similar previous studies are available for comparison Dr Ghada Caraballo MD [facility] (Electronically Signed) Final Date: 27 June 2025 16:05 S
[2025-06-27 13:20] LABS: Anion Gap 13.1 (5-19); Blood Urea Nitrogen 13 mg/dL (8-23); Calcium 8.3 mg/dL (8.5-10.5); Carbon Dioxide 21 mmol/L (22-29); Chloride 101 mmol/L (98-107); Glucose 132 mg/dL (65-115); Osmolality Calculated 274 mOsm/kg (285-295); Potassium 4.1 mmol/L (3.5-5.1); Sodium 131 mmol/L (136-145)
[2025-06-27 13:27] LABS: Free T4 Free Thyroxine 0.76 ng/dL (0.82-1.77)
--- NOTE | 2025-06-27 14:23 | P.CONIM_ITS ---
<Statement entered by Hussein Sanderson MD - 06/27/25 18:32> Patient was evaluated and cared for in conjunction with an advanced practice practitioner. I personally examined the patient and reviewed the chart and all pertinent data including imaging, telemetry, and laboratory results. I discussed the patient in detail with the advanced practice practitioner. Please see their note for complete H&P testing result and agreed upon plan of care for the patient. Patient says he hurts in his throat whenever he swallows, he appeared to be dehydrated. He is not on any beta-yeison or judah yeison. He has paced rhythm intermittently GENERAL: Patient is alert, awake and oriented x3. HEART: Regular S1 and S2. No murmur, rub or gallop. LUNGS: Clear to auscultate bilaterally. CENTRAL NERVOUS SYSTEM: Grossly nonfocal. EXTREMITIES: Lower extremities with out edema bilaterally. Assessment and plan Orthostatic hypotension Possible dehydration Not on any judah yeison Continue IV fluid Will check orthostatics in the morning Echocardiogram will be obtained to rule out any structural heart disease though physical exam there is no significant murmur noted. Telemonitoring did not show significant arrhythmia pacemaker interrogation will be performed in the morning to assess malfunction Providers/Reason For Consult 2 Consulting Physician/Specialty*: Dr. Sanderson Reason for Consult*: Syncopy Requesting Physician: Dr. Villavicencio Attending Physician: Anahi Villavicencio MD Primary Care Provider: Tyrone Morocho MD History of Present Illness History of Present Illness Jaciel Thrasher is a 84 year old male history of hypertension, pacemaker placement, schizoaffective disorder, hypothyroidism, BPH, and advanced dementia came in to the ER via long term with concern of syncopy. He is a poor historian and his major complaint is throat pain. He denies any syncope and the nurse reports a 9 on her shift, but once again patient is poor historian and records seem somewhat limited. Patient denies chest pain or shortness of breath. On exam appears dehydrated. Sodium on admission was 121. Echo is pending. EKG shows a paced rhythm. Pacemaker appears to be functioning on rhythm strip. Troponins are negative. Blood pressure slightly orthostatic. Currently on no alpha blocking medications. Vitals are stable on telemetry. Chronically anemic with a hemoglobin of 8.6 and 25.6. X-ray showed no acute cardiopulmonary findings. Review of Systems 2 Narrative: Patient states my throat hurts . Denies chest pain or shortness of breath. Review of systems is limited due to patient is poor historian. Medications/Allergies Home Medications ?Medication ?Instructions ?Recorded ?Confirmed ?Last Taken ?Type acetaminophen 325 mg tablet 650 mg PO QID PRN mild 10/1506/25/25 06/25/25 History pain/fever>100 cetirizine 10 mg tablet (Zyrtec) 10 mg PO DAILY 06/25/25 06/25/25 History cyanocobalamin (vitamin B-12) 1,000 mcg IM .Q28D 06/2506/25/25 06/24/25 History 1,000 mcg/mL injection solution docusate sodium 100 mg capsule 100 mg PO BID 06/25/25 06/25/25 06/25/25 History (Colace) guaifenesin 100 mg/5 mL oral 200 mg PO Q6H PRN cough/c ongestion 06/25/25 06/25/25 06/14/25 History liquid (Magali-Tussin) levothyroxine 50 mcg tablet 50 mcg PO QAM 06/25/2510/1506/25/25 History memantine 10 mg tablet 10 mg PO BID 06/25/2506/25/25 History naloxone 1 mg/mL injection syringe 1 mg IM Q2M PRN Opi oid Overdose 06/25/25 06/25/25 Unknown History oxcarbazepine 300 mg tablet 300 mg PO BID 06/25/2510/1506/25/25 History phenol 1.4 % mucosal aerosol spray 2 spray mucous memb lorenzo Q4H PRN 06/25/25 06/25/25 06/13/25 History Sore Throat Current Medications Generic Name Dose Route Start Last Admin Trade Name Freq PRN Reason Stop Dose Admin Cetirizine HCl 10 mg 06/26/25 05:00 06/27/25 04:51 Cetirizine 10 Mg Tablet PO 10 mg DAILY DANNIE Administration Docusate Sodium 100 mg 06/26/25 05:00 06/27/25 04:52 Docusate Sodium 100 Mg Capsule PO Not Given BID DANNIE Enoxaparin Sodium 40 mg 06/26/25 09:00 06/27/25 08:45 Enoxaparin 40 Mg/0.4 Ml Syringe SUBCUT 40 mg Q24H DANNIE Administration Sodium Chloride 1,000 mls @ 75 mls/hr 06/25/25 20:30 06/27/25 00:30 Sodium Chloride 0.9% IV 75 mls/hr .[id number] DANNIE Administration Levothyroxine Sodium 50 mcg 06/26/25 05:00 06/27/25 04:52 Levothyroxine 50 Mcg Tablet PO 50 mcg QAM DANNIE Administration Vitals/I&O/Wt Last Vital Signs Temp 97.1 F L 06/27/25 11:28 Pulse 73 06/27/25 11:28 Resp 17 06/27/25 11:28 BP 125/72 06/27/25 11:28 Pulse Ox 97 06/27/25 11:28 O2 Del Method Room Air 06/27/25 11:28 06/26/25 06/27/25 06/27/25 22:59 06:59 14:59 Intake Total 480 / 1677.5 1420 / 3097.5 480 / 480 Output Total 415 / 690 Balance 65 / 987.5 1420 / 2407.5 480 / 480 Weight last 48 hrs Weight 138 lb Weight 145 lb 1 oz Physical Exam 2 Narrative: General: No distress HENMT: normoceophalic Muskuloskeletal: Full ROM Lymphatic: no lymphedema noted Respiratory: Normal respiratory effort, clear to auscultation bilaterally throughout all lung eaton, no use of accessory muscles Cardio: No JVD, regular rate, regular rhythm, S1 S2 normal, no murmurs, peripheral pulses 2+ radial palpated bilaterally GI: Normal to inspection, nondistended Extremities: Full ROM, normal, normal capillary refill, no cyanosis or edema Neuro: Alert and oriented x4, no focal motor deficits Psych: Affect normal, denies suicidal ideation, mental status grossly normal Skin: No rashes or lesions noted, no wounds Data 06/27/25 08:26 06/27/25 08:24 Micro: Microbiology 06/25/25 13:25 Blood Culture - Preliminary Blood NEGATIVE TO DATE 06/25/25 13:15 Blood Culture - Preliminary Blood NEGATIVE TO DATE A&P Assessment and plan 1. Syncope: 2. Acute hyponatremia: 3. Pacemaker: Plan: At this time, it appears patient may be dehydrated from lack of intake. Agree with fluids. If patient had syncopal episode, could be due to dehydration and low sodium. This is improving. Although appears to be functioning on exam, will check pacemaker to make sure this is functioning appropriately to rule out dysfunction/arrhythmias. Echo ordered to rule out any valvular abnormalities. Further recommendations to follow the results of the above named exams. May be noncardiac in nature due to dehydration, but will rule this out. Thank you, Dr. Villavicencio, for allowing us to care for this very pleasant 84 year old gentleman. PDMP PDMP Reviewed: Not Reviewed Consult Attestations 2 Medical Necessity Statement: Deferred to primary. Coding Level of Care Code Acute Code for Chg Fwd Diagnoses Syncope R55 Acute hyponatremia E87.1 Pacemaker Z95.0
[2025-06-27 14:45] LABS: Hematocrit 24.3 % (37-53); Hemoglobin 8.40 g/dL (11.27-16.99); Mean Corpuscular HGB Conc 34.6 g/dL (30-55); Mean Corpuscular Hemoglobin 33.2 pg (27-33); Mean Corpuscular Volume 96.0 fl (82-101); Nucleated Red Blood Cells % 0 %; Platelet Count 180 10^3/cmm (157-399); Red Blood Count 2.53 10^6/uL (3.85-5.65); White Blood Count 3.57 10^3/uL (3.29-11.43)
[2025-06-28] VITALS (9 sets, daily range): BP systolic 111–149; BP diastolic 65–80; PULSE 62–103; RESP 16–19; TEMP 36.4–37.1; O2SAT 95–97; BMI 20.8
[2025-06-28 04:21] LABS: Hematocrit 23.5 % (37-53); Hemoglobin 8.00 g/dL (11.27-16.99); Mean Corpuscular HGB Conc 34.0 g/dL (30-55); Mean Corpuscular Hemoglobin 32.8 pg (27-33); Mean Corpuscular Volume 96.3 fl (82-101); Nucleated Red Blood Cells % 0 %; Platelet Count 157 10^3/cmm (157-399); Red Blood Count 2.44 10^6/uL (3.85-5.65); White Blood Count 3.92 10^3/uL (3.29-11.43)
[2025-06-28 04:42] LABS: Anion Gap 11.5 (5-19); Blood Urea Nitrogen 12 mg/dL (8-23); Calcium 8.4 mg/dL (8.5-10.5); Carbon Dioxide 22 mmol/L (22-29); Chloride 107 mmol/L (98-107); Glucose 96 mg/dL (65-115); Osmolality Calculated 282 mOsm/kg (285-295); Potassium 4.5 mmol/L (3.5-5.1); Sodium 136 mmol/L (136-145)
--- NOTE | 2025-06-28 12:54 | P.PN_ITS ---
Subjective 2 Subjective: Patient seen sitting in cardiac chair. He denies any dizziness at this time. He states that he is feeling pretty well.. Family present: No Amb status: Ambulates without assistance Diet: Regular Lines/Drains: Peripheral Tele: Paced rhythm Medications: Reviewed: Yes Vitals/I&O/Wt Last Vital Signs Temp 97.7 F 06/28/25 11:37 Pulse 75 06/28/25 11:37 Resp 18 06/28/25 11:37 BP 115/69 06/28/25 11:37 Pulse Ox 97 06/28/25 11:37 O2 Del Method Room Air 06/28/25 11:37 06/27/25 06/28/25 06/28/25 22:59 06:59 14:59 Intake Total 240 / 1720 0 / 1720 1240 / 1240 Output Total 730 / 730 0 / 730 350 / 350 Balance -490 / 990 0 / 990 890 / 890 Weight last 48 hrs Weight 64.138 kg Weight 62.596 kg Physical Exam 2 Narrative: Alert and oriented to self. No acute distress Heart regular rate and rhythm normal S1-S2 without murmurs clicks gallops or rubs Lungs clear to auscultation without wheezes rales or rhonchi Abdomen soft nontender nondistended positive bowel sounds Extremities no clubbing cyanosis or edema Data 06/28/25 03:38 06/28/25 03:38 A&P Assessment and plan 1. Acute hyponatremia: 2. Metabolic acidosis, normal anion gap (NAG): 3. Normocytic anemia: 4. Acquired hypothyroidism: Plan: # Syncope Unknown if there was loss of consciousness CT head was not done in ED. No focal neurological symptoms pacemaker in situ -Orthostatics remain positive. Patient has received a total of 6 L of normal saline since admission. His BUN has decreased from 22 to now 12. He appears euvolemic at this time. - Cardiology was consulted pacemaker is to be interrogated. - Echo shows: Normal left ventricular size and systolic function, EF 63%. Mild hypokinesia of the basal inferior wall segment.mild left ventricular hypertrophy. Grade I/IV diastolic dysfunction (abnormal relaxation filling pattern), normal to mildly elevated filling pressures. Mild mitral annular calcification. Trace to mild mitral valve regurgitation. Thickened aortic valve. Trace aortic valve regurgitation. Mild tricuspid valve regurgitation. Estimated pulmonary artery peak systolic pressure within normal limits. Possible pacemaker wire in the right atrium and right ventricle There is no pericardial effusion. No similar previous studies are available for comparison My suspicion is in this patient with dementia that he may be showing signs of autonomic dysfunction. Will start midodrine. Monitor another 24 hours and then likely DC tomorrow if asymptomatic. # Acute hyponatremia Not on diuretic. On psychotropic meds, oxcarbazepine Has now normalized 236, after receiving fluid # Metabolic acidosis w/ normal AG-resolved # Normocytic anemia Baseline HGB unknown. Presenting HGB 9.9 g/dL. Now down to 8.0 most likely from hemodilution from 6 L of fluids. - No active signs of bleeding at this time # Renal insufficiency bCr unknown. Presenting Cr 1.3. - Creatinine now normal at 1.0. 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 memantine 10 mg BID, HOLD, re: NF med for hospital oxcarbazepine 300 mg BID, HOLD, re: hyponatremia # Dysuria # Hx of urinary retention Per his record, possibly chronic UA negative for UTI - will need to start him on tamsulosin, once volume repleted and no longer orthostatic VTE PPx: SCDs. Lovenox. PDMP PDMP Reviewed: Not Reviewed Attestations 2 Medical Necessity Statement*: Patient requires continue hospitalization for syncope. He was started on a new treatment and will be monitored for 24 hours prior to return to longterm Coding Level of Care Code Acute Code for Chg Fwd Diagnoses Acute hyponatremia E87.1 Metabolic acidosis, normal anion gap (NAG) E87.20 Normocytic anemia D64.9 Acquired hypothyroidism E03.9 Hypothyroidism type: acquired
[2025-06-29] VITALS (7 sets, daily range): BP systolic 104–137; BP diastolic 56–77; PULSE 68–101; RESP 17–18; TEMP 36.4–37.1; O2SAT 95–98
[2025-06-29 04:06] LABS: Hematocrit 24.9 % (37-53); Hemoglobin 8.40 g/dL (11.27-16.99); Mean Corpuscular HGB Conc 33.7 g/dL (30-55); Mean Corpuscular Hemoglobin 32.7 pg (27-33); Mean Corpuscular Volume 96.9 fl (82-101); Nucleated Red Blood Cells % 0 %; Platelet Count 161 10^3/cmm (157-399); Red Blood Count 2.57 10^6/uL (3.85-5.65); White Blood Count 4.12 10^3/uL (3.29-11.43)
[2025-06-29 04:31] LABS: Anion Gap 12.3 (5-19); Blood Urea Nitrogen 15 mg/dL (8-23); Calcium 8.8 mg/dL (8.5-10.5); Carbon Dioxide 22 mmol/L (22-29); Chloride 108 mmol/L (98-107); Glucose 107 mg/dL (65-115); Osmolality Calculated 287 mOsm/kg (285-295); Potassium 4.3 mmol/L (3.5-5.1); Sodium 138 mmol/L (136-145)
--- NOTE | 2025-06-29 09:13 | PM.DCS ---
Discharge Providers Date of Admission: 06/26/25 15:41 Date of Discharge: June 29, 2025 Attending Provider at Admission: Shaun Brian MD Attending Provider at Discharge: Percy Mittal DO Consults: Cardiology Primary Care Provider: Tyrone Morocho MD Diagnoses at Discharge Discharge Diagnosis 1. Autonomic dysfunction: 2. Syncope: 3. Acute hyponatremia: 4. Metabolic acidosis, normal anion gap (NAG): 5. Normocytic anemia: 6. Acquired hypothyroidism: Reason for Visit Reason for Visit: SYNCOPE Brief History: Jaciel Thrasher is a 84 year old male with PMH of HTN, gout, BPH, hypothyroidism, advanced dementia and schizoaffective disorder. He was temporarily [facility]. Patient presented to the ED on 06/25/25 with concern for syncope. Records on disposition are very limited. Patient additionally has had 2 syncopal events. It is unclear if he had loss of consciousness. Patient is not on any antithrombotic or anticoagulation agents. He does not recall injury to the head. Denies head and neck pain. Denies chest pain, shortness of breath, dizziness and abdominal pain. Patient himself does not have any specific complaints with exception of dysuria. Hospital Course Hospital Course Patient was admitted for syncope. He was felt to be dehydrated and was given fluids. Despite rehydration and euvolemia patient remained with orthostatic vital signs. Consult was placed to cardiology who ordered an echo. He was noted to not be on any AV judah blocking agents. He was started on midodrine with excellent results. The following day he was no longer orthostatic. Patient require PT and OT he would likely need to change his behavior with going from lying sitting to standing. And in the future avoid any AV judah blocking agents. Physical Exam Narrative: Alert and oriented to self. No acute distress Heart regular rate and rhythm normal S1-S2 without murmurs clicks gallops or rubs Lungs clear to auscultation without wheezes rales or rhonchi Abdomen soft nontender nondistended positive bowel sounds Extremities no clubbing cyanosis or edema Discharge Data Studies Completed and Pending Completed Studies During Hospitalization Category Date Time Status XR chest 1V portable [id number] Stat Exams 06/25/25 13:05 Completed US echo complete [CV. echo complete* [id number]] Routine Ultrasound 06/27/25 12:46 Completed Pending at discharge Category Date Time Status BMP [Basic Metabolic Panel] AM LABS Lab 06/30/25 04:00 Ordered Blood Culture Stat Lab 06/25/25 13:15 Results CBC Auto Diff [Complete Blood Count w/Auto] AM LABS Lab 06/30/25 04:00 Ordered Urine Random Sodium Routine Lab 06/25/25 17:06 Ordered Radiology Impressions Chest X-Ray 06/25/25 13:05 IMPRESSION: No acute cardiopulmonary findings. Laboratory Results WBC 4.12 10^3/uL (3.29-11.43) 06/29/25 03:28 RBC 2.57 10^6/uL (3.85-5.65) L 06/29/25 03:28 Hgb 8.40 g/dL (11.27-16.99) L 06/29/25 03:28 Hct 24.9 % (37-53) L 06/29/25 03:28 MCV 96.9 fl (82-101) 06/29/25 03:28 MCH 32.7 pg (27-33) 06/29/25 03:28 MCHC 33.7 g/dL (30-55) 06/29/25 03:28 RDW 15.6 % (12.1-15.1) H 06/29/25 03:28 Plt Count 161 10^3/cmm (157-399) 06/29/25 03:28 MPV 9.2 fL (7.4-10.4) 06/29/25 03:28 Neut % (Auto) 35.9 % 06/29/25 03:28 Lymph % (Auto) 48.8 % 06/29/25 03:28 Lyman % (Auto) 7.0 % 06/29/25 03:28 Eos % (Auto) 6.1 % 06/29/25 03:28 Baso % (Auto) 1.5 % 06/29/25 03:28 Neut # (Auto) 1.48 10^3/uL (1.8-7.7) L 06/29/25 03:28 Lymph # (Auto) 2.0 10^3/uL (0.8-4.8) 06/29/25 03:28 Lyman # (Auto) 0.3 10^3/uL (0.2-0.9) 06/29/25 03:28 Eos # (Auto) 0.3 10^3/uL (0.0-0.8) 06/29/25 03:28 Baso # (Auto) 0.1 10^3/uL (0.0-0.1) 06/29/25 03:28 Nucleated RBC % (auto) 0 % 06/29/25 03:28 Nucleated RBCs # 0.0 /100WBC 06/29/25 03:28 Sodium 138 mmol/L (136-145) 06/29/25 03:28 Potassium 4.3 mmol/L (3.5-5.1) 06/29/25 03:28 Chloride 108 mmol/L (98-107) H 06/29/25 03:28 Carbon Dioxide 22 mmol/L (22-29) 06/29/25 03:28 Anion Gap 12.3 (5-19) 06/29/25 03:28 BUN 15 mg/dL (8-23) 06/29/25 03:28 Creatinine 1.1 mg/dL (0.7-1.2) 06/29/25 03:28 GFR Calculation Not Reportable 06/29/25 03:28 Glucose 107 mg/dL (65-115) 06/29/25 03:28 Serum Osmolality 269 mOsm/kg (278-305) L 06/25/25 13:06 Calculated Osmolality 287 mOsm/kg (285-295) 06/29/25 03:28 Lactic Acid 1.6 mmol/L (0.5-2.2) 06/25/25 13:15 Calcium 8.8 mg/dL (8.5-10.5) 06/29/25 03:28 Total Bilirubin 0.3 mg/dL (0.15-1.2) 06/25/25 13:06 AST 17 U/L (0-40) 06/25/25 13:06 ALT 10 U/L (0-41) 06/25/25 13:06 Alkaline Phosphatase 101 U/L (40-130) 06/25/25 13:06 Troponin T Baseline 15 ng/L (0-15) 06/25/25 13:06 Troponin T 120 Minute 13.32 ng/L (0-15) 06/25/25 14:50 Delta Troponin T -1.68 ABS# (0-10) L 06/25/25 14:50 Troponin T Hi Sens 6Hr 13.21 ng/L (0-15) 06/25/25 18:20 Troponin T Hi Sens 6Hr Delta -1.79 ng/L (0-12) L 06/25/25 18:20 Total Protein 6.8 g/dL (6.6-8.7) 06/25/25 13:06 Albumin 4.2 g/dL (3.5-5.2) 06/25/25 13:06 Globulin 2.6 g/dL (1.3-4.6) 06/25/25 13:06 TSH 4.54 uIU/mL (0.27-4.20) H 06/26/25 05:33 Free T4 0.76 ng/dL (0.82-1.77) L 06/27/25 08:24 Random Cortisol 10.08 ug/dL (2.47-19.5) 06/26/25 05:33 Urine Color Yellow (Yellow) 06/25/25 13:35 Urine Appearance Clear (CLEAR) 06/25/25 13:35 Urine pH 5.5 (5-7) 06/25/25 13:35 Ur Specific [place] 1.019 (1.005-1.030) 06/25/25 13:35 Urine Protein Trace (Negative) A 06/25/25 13:35 Urine Glucose (UA) Negative (Normal) 06/25/25 13:35 Urine Ketones Negative (Negative) 06/25/25 13:35 Urine Blood Negative (Negative) 06/25/25 13:35 Urine Nitrate Negative (Negative) 06/25/25 13:35 Urine Bilirubin Negative (Negative) 06/25/25 13:35 Urine Urobilinogen 0.2 mg/dL (Negative) 06/25/25 13:35 Ur Leukocyte Esterase Negative (Negative) 06/25/25 13:35 Urine RBC 0-2 /hpf (0-2) 06/25/25 13:35 Urine WBC 0-5 /hpf (0-5) 06/25/25 13:35 Ur Squamous Epith Cells 0-5 /hpf (0-5) 06/25/25 13:35 Amorphous Sediment Not Reportable 06/25/25 13:35 Urine Bacteria None seen /hpf (NONE) 06/25/25 13:35 Hyaline Casts 2.46 /lpf 06/25/25 13:35 Urine Osmolality 590 mOsm/kg (50-1200) 06/25/25 13:35 Ur Random Sodium Cancelled 06/25/25 13:35 Imaging Echo: Radiologist's impression: CONCLUSIONS Normal left ventricular size and systolic function, EF 63%. Mild hypokinesia of the basal inferior wall segment.mild left ventricular hypertrophy. Grade I/IV diastolic dysfunction (abnormal relaxation filling pattern), normal to mildly elevated filling pressures. Mild mitral annular calcification. Trace to mild mitral valve regurgitation. Thickened aortic valve. Trace aortic valve regurgitation. Mild tricuspid valve regurgitation. Estimated pulmonary artery peak systolic pressure within normal limits. Possible pacemaker wire in the right atrium and right ventricle There is no pericardial effusion. Vitals Last Vital Signs Temp 98.7 F 06/29/25 08:31 Pulse 71 06/29/25 08:32 Resp 17 06/29/25 08:31 BP 122/67 06/29/25 08:32 Pulse Ox 95 06/29/25 08:31 O2 Del Method Room Air 06/29/25 08:31 Discharge Plan Discharge Patient Disposition: Xfer SNF Condition: Stable Prescriptions: New midodrine 5 mg Tablet 5 mg PO TID Qty: 90 0RF Continued acetaminophen 325 mg Tablet 650 mg PO QID PRN (Reason: mild pain/fever>100) cetirizine [Zyrtec] 10 mg Tablet 10 mg PO DAILY oxcarbazepine 300 mg tablet 300 mg PO BID guaifenesin [Magali-Tussin] 100 mg/5 mL Liquid 200 mg PO Q6H PRN (Reason: cough/congestion) levothyroxine 50 mcg tablet 50 mcg PO QAM cyanocobalamin (vitamin B-12) [Vitamin B-12] 1,000 mcg/mL Solution 1,000 mcg IM .Q28D docusate sodium [Colace] 100 mg Capsule 100 mg PO BID phenol 1.4 % Aerosol,[place] 2 spray MUCOUS MEMBRANE Q4H PRN (Reason: Sore Throat) naloxone [Narcan] 1 mg/mL Syringe 1 mg IM Q2M PRN (Reason: Opioid Overdose) Rx Instructions: NTExceed 10 mg total dose/episode memantine 10 mg tablet 10 mg PO BID Discharge Order = DC NOW: Discharge Order (Routine); Ordered 06/29/25 Ordered By: Percy Mittal Referrals: [facility] [Outside] Discharge Diet: Regular Discharge Activity: Use walker/crutches as instructed and As per PT/OT instructions Patient Instructions: Opioid Safety, Patient Portal & [place] Instructions Discharge Attestations Time Spent in Discharge Care*: less than 30 min Quality Metrics Clinical Quality Measures [ No reported AMI, CVA or VTE this stay] Coding Level of Care Code Acute Code for Chg Fwd Diagnoses Autonomic dysfunction G90.9 Syncope R55 Acute hyponatremia E87.1 Metabolic acidosis, normal anion gap (NAG) E87.20 Normocytic anemia D64.9 Acquired hypothyroidism E03.9 Hypothyroidism type: acquired
--- NOTE | 2025-06-29 13:21 | PC.NURSE ---
[place], transport from [facility] arrived to package pick up patient. Patient was given afternoon dose of midodrine and sent with two doses, for 2100 dose and 0500 dose. Report was called to LAURA Trammell, all questions were answered. Patient exited facility with [facility] staff at 1210, with all belongings.
== END 2025-06-29 12:10 | disposition intermediate care facility (04) | DRG 641 ==
LOC: ER 15:08 → MEDSURG 16:02
PROVIDERS: Internal Medicine; Nurse Practitioner Gerontology; Admitting Provider Internal Medicine; Emergency Provider Emergency Medicine; PCP Family Medicine; Visit Provider Internal Medicine
DX: E87.1 Hypo-osmolality and hyponatremia (principal); I95.1 Orthostatic hypotension; E87.20 Acidosis, unspecified; D64.9 Anemia, unspecified; E03.9 Hypothyroidism, unspecified; F03.90 Unspecified dementia, unspecified severity, without behavioral disturbance, psychotic disturbance, mood disturbance, and anxiety; E86.0 Dehydration; N28.9 Disorder of kidney and ureter, unspecified; F20.9 Schizophrenia, unspecified; R30.0 Dysuria
CPT/HCPCS: 36415; 51702; 51798; 71045; 80048; 80053; 81001; 82533; 83605; 83930; 83935; 84439; 84443; 84484; 85018; 85025; 87040; 93005; 93306; 96372; 99285; G0378; J1650; J7030; J9999